=== PATIENT | female | born 1985 | race Caucasian/White ===

== ENCOUNTER 2019-08-06 01:07 | Inpatient (IN) | payer MEDICARE ==
[~2019-08-06] VITALS: Ht 162.6 cm; Wt 56.8 kg
[2019-08-06] MEDS ORDERED: NICOTINE 21MG/24HR 1 EA TRANSDERMAL TD ONE (01:45)
[2019-08-06] MEDS ORDERED: TOPI100T9 PO (03:20)
[2019-08-06] MEDS ORDERED: KEPP10002 PO (03:34)
[2019-08-06] MEDS ORDERED: GABA800T4 PO (03:34)
[2019-08-06] MEDS ORDERED: RISP1TAB3 PO (03:34)
[2019-08-06] MEDS ORDERED: PRED50TA PO (03:34)
[2019-08-06] MEDS ORDERED: LAMO25TA4 PO (03:34)
[2019-08-06] MEDS ORDERED: MYDA1CAP PO (03:34)
[2019-08-06] MEDS ORDERED: BUPR1SUB5 SL (03:35)
[2019-08-06] MEDS ORDERED: LEVO75TA4 PO (03:40)
[2019-08-06] MEDS ORDERED: AMIT50TA PO (03:41)
[2019-08-06] MEDS ORDERED: PANT-23 PO (03:45)
[2019-08-06] MEDS ORDERED: METH50VL IV (03:45)
[2019-08-06] MEDS ORDERED: LORA0.5T5 PO (03:45)
[2019-08-06] MEDS ORDERED: PATIENT COMMENTS (03:47)
[2019-08-06] MEDS ORDERED: MOM 30ML SUSPENSION UDC PO PRN (06:30)
[2019-08-06] MEDS ORDERED: MAALOX 30 ML SUSP *UDC PO PRN (06:30)
[2019-08-06] MEDS ORDERED: traZODone 50 MG TAB PO PRN (06:30)
[2019-08-06] MEDS ORDERED: TOPIRAMATE (TopAMAX) 100 MG TAB PO SCH (09:00)
[2019-08-06] MEDS ORDERED: BUPRENORPHINE/NALOXONE 8-2MG SUBLINGUAL TABLET(SUBOXONE) SL SCH (09:00)
[2019-08-06] MEDS ORDERED: LEVOTHYROXINE 75MCG TABLET (0.075MG) PO SCH (09:00)
[2019-08-06] MEDS ORDERED: PANTOPRAZOLE 40MG TAB (PROTONIX) PO SCH (09:00)
[2019-08-06] MEDS ORDERED: predniSONE 50 MG TAB PO SCH (09:00)
[2019-08-06] MEDS ORDERED: lamoTRIgine 25 MG TAB PO SCH (09:00)
[2019-08-06] MEDS ORDERED: levETIRAcetam 250MG TABLET (KEPPRA) PO SCH (10:30)
[2019-08-06] MEDS: GABAPENTIN 400 MG CAP PO SCH ×4 (10:46→22:49)
[2019-08-06] MEDS: risperiDONE 1 MG TAB PO SCH ×3 (10:47→22:49)
[2019-08-06] MEDS: ACETAMINOPHEN TAB 650MG DOSE (2X325MG) PO PRN ×2 (12:12→19:49)
[2019-08-06 12:19] VITALS: BP 109/72
--- NOTE | 2019-08-06 14:26 | HPEPDOC ---
General Date of Admission Aug 06, 2019 at 06:25 Date of Service: Aug 06, 2019 Chief Complaint The patient is a 34-year-old female who presented to the ER with complaints of hearing voices History of Present Illness Patient is a 34 year old female with a PMHx of Hypothyroidism, Seizure disorder, Migraine disorder, Depression / Anxiety, ADHD, DLP, Asthma who presented to the ER with complaints of hearing voices. Patient was admitted to [facility] under the care of psychiatry and hospitalist service was consulted for medical screening evaluation. Patient reports a mild headache reported as a 7/10, frontal, non-radiating, pounding sensation. Does not report any associated photophobia or phonophobia. Patient denies nausea, vomiting, chest pain, shortness of breath, palpitations, cough, abdominal pain, constipation, diarrhea, or urinary discomfort. Denies any recent fevers or chills. They report that her appetite has been fairly normal and they do report some increase and decrease in their weight. Home Medications Scheduled Amitriptyline HCl (Amitriptyline HCl) 50 Mg Tablet, 50 MG PO QHS, (Reported) Buprenorphine HCl/Naloxone HCl (Buprenorphin-Naloxon 8-2 mg Sl) 1 Each Tab.subl, 1 TAB SL BID, (Reported) Dextroamphetamine/Amphetamine (Mydayis ER 37.5 mg Capsule) 37.5 Mg Cptp.24hr, 37.5 MG PO QAM, (Reported) Gabapentin (Gabapentin) 800 Mg Tablet, 800 MG PO QID, (Reported) Lamotrigine (Lamotrigine) 25 Mg Tablet, 25 MG PO BID, (Reported) GIVEN AT [facility] PATIENT ON INCREASING DOSAGE. BEGINNING 08/14/2019 DOSE INCREASES BY 25MG FOR ONE OF THE BID DOSES FOR A WEEK AND INCREASES BY THE SAME WEEKLY ENDING 09/25/2019 Levetiracetam (Keppra) 1,000 Mg Tablet, 1,000 MG PO Q12H, (Reported) GIVEN AT [facility] Levothyroxine Sodium (Levothyroxine Sodium) 75 Mcg Tablet, 75 MCG PO DAILY, (Reported) GIVEN AT [facility] Methylprednisolone (Solu-Medrol) 500 Mg Vial, 500 MG IV 1XWK, (Reported) 1X WEEK FOR 3 MONTHS, STARTED 07/17/2019 Pantoprazole Sodium (Pantoprazole Sodium) 40 Mg Tablet.dr, 40 MG PO DAILY, (Reported) Prednisone (Prednisone) 50 Mg Tablet, 50 MG PO DAILY, (Reported) GIVEN AT [facility] Risperidone (Risperidone) 1 Mg Tablet, 1 MG PO TID, (Reported) Topiramate (Topiramate) 100 Mg Tablet, 300 MG PO DAILY, (Reported) Scheduled PRN Lorazepam (Lorazepam) 0.5 Mg Tablet, 0.5 MG PO TID PRN for ANXIETY/AGITATION, (Reported) Miscellaneous Medications [Patient Comments] , (Reported) PATIENT STATES SHE LAST TOOK HER HOME MEDICATION ABOUT 2 DAYS AGO Allergies Coded Allergies: No Known Allergies (Unverified , 08/06/19) Past Medical History Medical History Hypothyroidism, Seizure disorder, Migraine disorder, Depression / Anxiety, ADHD, DLP, Asthma Surgical History Hernia repair, status post mesh Pin and jessie placement of her back Family History - Mother with history of SLE - Father with an unknown past medical history - No history of malignancies Social History - Denies the use of alcohol or illicit drugs; reports that she is a smoker since her teenage years at one [facility] - Denies recent travel or sick contacts - Lives alone - Occupation; on disability Review of Systems Other systems 10 point review of systems complete, all negative otherwise stated in HPI Vital Signs - Vitals: BP 132/66, HR 68, RR 14, Sat 98%RA, Temp 98.7F - General: Lying in bed, No acute distress, Speaking in full sentences, AAOx3 - HEENT: NC, AT, PERRLA, EOMI - CVS: RRR, +S1S2, - Murmurs / rubs / gallops - Lungs: Fair air entry bilaterally, No appreciable wheezing / rales / rhonchi - Abdomen: Soft, Non-distended, Non-tender - Extremities: No lower extremity edema, No calf tenderness - Neuro: No focal motor or sensory deficit - Skin: No visible rashes Plan / VTE VTE Prophylaxis Ordered?: Yes Plan Plan Auditory hallucinations / Depression / Anxiety - Patient has been admitted to inpatient mental health unit under the care of psychiatry - Currently being managed by psychiatry Hypothyroidism - Continue with levothyroxine Seizure disorder - Continue with Keppra Migraine disorder - Patient reports a headache at the frontal area - Continue with Tylenol when necessary and Excedrin when necessary ADHD - Medications on hold DLP - Currently not on medicatiosn Asthma - No evidence of exacerbation GERD - c/w Protonix DVT prophylaxis - c/w early ambulation Female 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
[2019-08-06] MEDS: EXCEDRIN MIGRAINE TABLET PO PRN (17:47)
[2019-08-06 17:59] VITALS: BP 102/61
[2019-08-06] MEDS ORDERED: OLANZapine ORAL DISINTEGRATING TAB 5MG PO SCH (21:00)
[2019-08-06] MEDS ORDERED: AMITRIPTYLINE 50 MG TAB PO SCH (21:00)
[2019-08-06] MEDS: lamoTRIgine 25 MG TAB PO SCH (22:48)
[2019-08-06] MEDS: levETIRAcetam 250MG TABLET (KEPPRA) PO SCH (22:48)
[2019-08-07 05:38] VITALS: BP 104/55
[2019-08-07] MEDS ORDERED: LEVOTHYROXINE 75MCG TABLET (0.075MG) PO SCH (06:00)
[2019-08-07] MEDS: levETIRAcetam 250MG TABLET (KEPPRA) PO SCH (08:11)
[2019-08-07] MEDS: GABAPENTIN 400 MG CAP PO SCH ×2 (08:12→12:16)
[2019-08-07] MEDS: risperiDONE 1 MG TAB PO SCH (08:12)
[2019-08-07] MEDS: lamoTRIgine 25 MG TAB PO SCH (08:12)
[2019-08-07] MEDS: EXCEDRIN MIGRAINE TABLET PO PRN (08:57)
[2019-08-07] MEDS ORDERED: BUPRENORPHINE/NALOXONE 8-2MG SUBLINGUAL TABLET(SUBOXONE) SL SCH (09:00)
[2019-08-07] MEDS ORDERED: TOPIRAMATE (TopAMAX) 100 MG TAB PO SCH (09:00)
[2019-08-07] MEDS ORDERED: INFLUENZA QUADRIVALENT PF VACCINE 0.5ML SYRINGE (90686) IM ONE (09:00)
[2019-08-07] MEDS ORDERED: PANTOPRAZOLE 40MG TAB (PROTONIX) PO SCH (09:00)
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
[2019-08-07] MEDS: ACETAMINOPHEN TAB 650MG DOSE (2X325MG) PO PRN (09:50)
--- NOTE | 2019-08-07 11:21 | MHDSPDOC ---
[facility] Discharge Summary Discharge Summary DATE OF ADMISSION: Aug 06, 2019 at 06:25 DATE OF DISCHARGE: 08/07/19 Please see h/p for same day discharge Vital Signs/I&Os Vital Signs Date Time Temp Pulse Resp B/P (MAP) Pulse Ox O2 Delivery O2 Flow Rate FiO2 08/07/19 05:38 98.8 64 20 104/55 (71) Room Air 08/06/19 12:19 97 Medications Scheduled Amitriptyline HCl (Amitriptyline HCl) 50 Mg Tablet, 50 MG PO QHS, (Reported) Buprenorphine HCl/Naloxone HCl (Buprenorphin-Naloxon 8-2 mg Sl) 1 Each Tab.subl, 1 TAB SL BID, (Reported) Dextroamphetamine/Amphetamine (Mydayis ER 37.5 mg Capsule) 37.5 Mg Cptp.24hr, 37.5 MG PO QAM, (Reported) Gabapentin (Gabapentin) 800 Mg Tablet, 800 MG PO QID, (Reported) Lamotrigine (Lamotrigine) 25 Mg Tablet, 25 MG PO BID, (Reported) GIVEN AT [facility] PATIENT ON INCREASING DOSAGE. BEGINNING 08/14/2019 DOSE INCREASES BY 25MG FOR ONE OF THE BID DOSES FOR A WEEK AND INCREASES BY THE SAME WEEKLY ENDING 09/25/2019 Levetiracetam (Keppra) 1,000 Mg Tablet, 1,000 MG PO Q12H, (Reported) GIVEN AT [facility] Levothyroxine Sodium (Levothyroxine Sodium) 75 Mcg Tablet, 75 MCG PO DAILY, (Reported) GIVEN AT [facility] Methylprednisolone (Solu-Medrol) 500 Mg Vial, 500 MG IV 1XWK, (Reported) 1X WEEK FOR 3 MONTHS, STARTED 07/17/2019 Pantoprazole Sodium (Pantoprazole Sodium) 40 Mg Tablet.dr, 40 MG PO DAILY, (Reported) Prednisone (Prednisone) 50 Mg Tablet, 50 MG PO DAILY, (Reported) GIVEN AT [facility] Risperidone (Risperidone) 1 Mg Tablet, 1 MG PO TID, (Reported) Topiramate (Topiramate) 100 Mg Tablet, 300 MG PO DAILY, (Reported) Scheduled PRN Lorazepam (Lorazepam) 0.5 Mg Tablet, 0.5 MG PO TID PRN for ANXIETY/AGITATION, (Reported) Miscellaneous Medications [Patient Comments] , (Reported) PATIENT STATES SHE LAST TOOK HER HOME MEDICATION ABOUT 2 DAYS AGO Allergies Coded Allergies: No Known Allergies (Unverified , 08/06/19) TESS AMAYA DO Aug 07, 2019 11:21
== END 2019-08-07 13:28 | disposition home or self-care (01) | DRG 885 ==
LOC: EDSEX 01:07 → M ED 01:07 → M ED INP 06:25 → M PSY 11:20
PROVIDERS: ADMIT Psychiatry & Neurology Addiction Medicine; ATTEND Psychiatry & Neurology Addiction Medicine
DX: F29 Unspecified psychosis not due to a substance or known physiological condition (principal); F19.94 Other psychoactive substance use, unspecified with psychoactive substance-induced mood disorder; F15.90 Other stimulant use, unspecified, uncomplicated; F17.200 Nicotine dependence, unspecified, uncomplicated; Z79.899 Other long term (current) drug therapy; G40.909 Epilepsy, unspecified, not intractable, without status epilepticus; G43.909 Migraine, unspecified, not intractable, without status migrainosus; F41.9 Anxiety disorder, unspecified; J45.909 Unspecified asthma, uncomplicated; E03.9 Hypothyroidism, unspecified; Z79.52 Long term (current) use of systemic steroids; K21.9 Gastro-esophageal reflux disease without esophagitis